=== PATIENT | male | born 1965 | race Caucasian/White ===

== ENCOUNTER 2018-07-28 06:40 | Day surgery (SDC) | payer BC ==
[2018-07-28] VITALS (16 sets, daily range): BP systolic 110–130; BP diastolic 61–81; PULSE 85–110; RESP 15–25; Ht 167.6 cm; Wt 63.6 kg
[~2018-07-28] VITALS: Ht 167.6 cm; Wt 63.6 kg
[~2018-07-28 06:40] MED LIST: CEFAZOLIN 2 GM/50 ML (PMX) 50 ML IVPB SCH; SOD CHLORIDE 0.9% 1,000 ML IV SCH
[2018-07-28] MEDS ORDERED: DEXAMETHASONE 4 MG/ML 5 ML INJ ONE (07:00)
[2018-07-28] MEDS ORDERED: SOD CHLORIDE 0.9% 1,000 ML IV ONE (07:00)
[2018-07-28] MEDS ORDERED: EPHEDrine SULFATE 50 MG/5 ML SYG ONE (07:00)
[2018-07-28] MEDS ORDERED: CEFAZOLIN 2 GM/50 ML (PMX) 50 ML IVPB ONE (07:00)
[2018-07-28] MEDS ORDERED: DESFLURANE 15 MIN ONE (07:00)
[2018-07-28] MEDS ORDERED: ACETAMINOPHEN 500 MG TAB PO STA (07:32)
[2018-07-28] MEDS ORDERED: LIDOCAINE 2% (SDV) 5 ML INJ ONE (08:04)
[2018-07-28] MEDS ORDERED: PROPOFOL 40 ML ONE (08:04)
[2018-07-28] MEDS ORDERED: FENTAnyl 50 MCG/ML VIAL ONE (08:04)
[2018-07-28] MEDS ORDERED: FAMOTIDINE 20 MG INJ ONE (08:04)
[2018-07-28] MEDS ORDERED: ONDANSETRON 4 MG INJ ONE (08:04)
[2018-07-28] MEDS ORDERED: MIDAZOLAM 1 MG/ML 2 ML INJ ONE (08:04)
[2018-07-28] MEDS ORDERED: ROCURONIUM 50 MG INJ ONE (08:04)
[2018-07-28] MEDS ORDERED: CEFAZOLIN 1 GM INJ ONE (08:04)
[2018-07-28] MEDS ORDERED: BUPIVACAINE 0.5%/EPI (SDV) 30 ML INJ ONE (08:22)
--- NOTE | 2018-07-28 08:29 | HPN ---
Date/Time of Note Date/Time of Note DATE: 07/28/18 TIME: 08:29 Interval H&P Admission Note Pt. seen H&P reviewed: No system changes DEVIN PHILIPPE MD Jul 28, 2018 08:29
--- NOTE | 2018-07-28 08:34 | PREAC ---
Date/Time of Note Date/Time of Note DATE: 07/28/18 TIME: 08:32 Anesthesia Eval and Record Evaluation Time Pre-Procedure Interview DATE: 07/28/18 TIME: 08:32 Age 53 Sex male NPO: 8 hrs Preoperative diagnosis R inguinal hernia Planned procedure R inguinal hernia open repair w/ mesh Past Medical History Past Medical History: Includes Pulm: Smoking Hx (x20 yrs ) Surgery & Anesthesia Issues No known issue (L hernia repair) Meds Anticoagulation: No Beta Delores within 24 hr: No Reason Beta Delores not given: Pt. not on B-Delores No Active Prescriptions or Reported Meds Current Medications Sodium Chloride 1,000 ml @ 75 mls/hr [id number] ONCE IV ; Start 07/28/18 at 07:00; Stop 07/28/18 at 20:19 Meds reviewed: Yes Allergies Coded Allergies: No Known Allergies (Verified Allergy, Unknown, 07/28/18) Allergies Reviewed: Yes Labs/Studies Labs Reviewed: Reviewed by anesthesiologist test: N/A Studies: ECG (nsr), CXR (no active dz) Pre-procedure Exam Last vitals Vital Signs Date Temp Pulse Resp B/P (MAP) Pulse Ox O2 O2 Flow FiO2 Time Delivery Rate 07/28/18 98.2 85 18 130/81 96 Room Air 07:49 (97) Airway: Adequate mouth opening, Adequate thyromental dist Mallampati: Mallampati II Teeth: Abnormal (multiple missing teeth, teeth in poor condition) Lung: Normal Heart: Normal ASA Physical Status ASA physical status: 2 Emergency: None Planned Anesthetic General/MAC: ETT Pre-operative Attestations Prior to commencing anesthesia and surgery, the patient was re-evaluated, there was verification of: *The patient's identity *The results of appropriate recent lab work and preoperative vital signs *The above evaluation not changing prior to induction *Anesthetic plan, risk benefits, alternative and complications discussed with patient/family; questions answered; patient/family understands, accepts and wishes to proceed. SUE PARR Jul 28, 2018 08:34
[2018-07-28] MEDS ORDERED: SUGAMMADEX SODIUM 200 MG/2 ML VIAL IV ONE (08:42)
[2018-07-28] MEDS ORDERED: HYDROmorphONE 1 MG/5 ML IV SYRINGE IV PRN ×2 (09:00)
[2018-07-28] MEDS ORDERED: OXYCODONE/ACETAMINOPHEN (5/325) TAB PO PRN ×4 (09:00→10:30)
[2018-07-28] MEDS ORDERED: DIPHENHYDRAMINE 50 MG INJ IV PRN (09:00)
[2018-07-28] MEDS ORDERED: FENTAnyl 50 MCG/ML VIAL IV PRN (09:00)
[2018-07-28] MEDS ORDERED: MEPERIDINE 25 MG INJ IV PRN (09:00)
[2018-07-28] MEDS ORDERED: ONDANSETRON 4 MG INJ IV PRN ×2 (09:00→10:30)
[2018-07-28] MEDS ORDERED: BUPIVACAINE 0.5%/EPI (SDV) 30 ML INJ INJ ONE (09:00)
[2018-07-28] MEDS ORDERED: morphine (1 MG/ML) 10ML SYRINGE IV PRN ×2 (09:00)
[2018-07-28] MEDS ORDERED: POLYMYXIN/BACITRACIN 1L IRRIG IRR ONE (09:00)
[2018-07-28] MEDS ORDERED: LABETALOL HCL 20MG INJ IV PRN (09:00)
[2018-07-28] MEDS ORDERED: ALBUTEROL 0.083% (NEB) 2.5 MG/3 ML AMP HHN PRN (09:00)
[2018-07-28] MEDS ORDERED: ROPIVACAINE 0.2% 20 ML VIAL ONE (10:07)
--- NOTE | 2018-07-28 10:20 | OPR ---
Date/Time of Note Date/Time of Note DATE: 07/28/18 TIME: 10:16 Operative Report Procedure Date: Jul 28, 2018 Preoperative Diagnosis Right inguinal hernia without obstruction or gangrene Postoperative Diagnosis Right inguinal hernia without obstruction or gangrene Operation/Procedure Performed 1. Open repair of right inguinal hernia with mesh 2. Right ilioinguinal nerve block Surgeon see signature line Manager Of Regulatory Affairs None Anesthesia Type: general Anesthesiologist: NOREEN MARTIN MD Estimated Blood Loss: minimal Transfusion none Specimen None Grafts/Implants Ethicon ultra pro plug and patch size medium Complications none Pt Condition Post Procedure: stable Disposition: PACU Indications The patient is a 53-year-old [place] male who presented to the office complaining of a painful right groin bulge. He was diagnosed on clinical exam as having a right inguinal hernia. The patient was scheduled for open right inguinal hernia repair with mesh to prevent sequelae of hernia disease which include, but are not limited to: Incarceration and strangulation. All risks and benefits of the procedure including but not limited to: Wound infection, excessive bleeding, postoperative seroma/hematoma formation, nerve injury which may be temporary versus permanent, injury to the reproductive organs including the vas deferens and the testicle which may lead to testicular atrophy, injury to intra-abdominal organs necessitating subsequent operation, hernia recurrence, chronic pain, etc. were all explained to the patient full detail. The patient fully understood and wished to proceed with the procedure. Informed consent was therefore obtained. Procedure Description The patient was brought to the operating room and placed supine on the operating table. Bilateral sequential compression devices were placed on both lower extremities. A dose of broad-spectrum perioperative intravenous antibiotics was given. After the induction of smooth general anesthesia the patient's abdomen and bilateral groins were prepped and draped in standard surgical fashion. After performance of the surgical timeout 0.5% Marcaine with epinephrine was injected over the area of the incision. Incision was then made using a 15 blade scalpel from the right pubic tubercle towards the right anterior superior iliac spine. Incision was carried down through the skin into the subcutaneous tissues using Bovie electrocautery. Vinnie's fascia was incised and the aponeurosis of the external oblique muscle was reached. The aponeurosis of the external oblique muscle was then incised in the direction of its fibers using a 15 blade scalpel and further opened using Metzenbaum scissors. The ilioinguinal nerve was identified on top of the spermatic cord. It was kept in its anatomical position and preserved throughout the entirety of the procedure. Using blunt dissection the spermatic cord was then mobilized off of the floor of the inguinal canal and encircled using a Bebeto drain. The cord structures were identified and preserved throughout the entirety of the procedure. Cremasteric muscles were incised and dissection of the cord was begun. A moderate sized indirect hernia sac was identified. It was dissected off of the cord. Dissection was continued towards the neck of the hernia. The sac was then reduced back into the intra-abdominal cavity. The indirect hernia defect was then repaired using a medium sized Ethicon ultra pro plug. The plug was sutured in place using interrupted 3-0 Vicryl sutures. An onlay mesh was then used to reconstruct the floor of the inguinal canal. It was secured in place using interrupted 2-0 Novafil sutures. Both the plug and the mesh were soaked in antibiotic irrigation prior to placement in the field. A slit was made in the mesh to accommodate the spermatic cord. With the repair complete it was examined and noted to be hemostatic and tension-free. Adequacy of the repair was confirmed Via Valsalva maneuver performed by the anesthesiologist. The wound cavity was then irrigated with more antibiotic containing irrigation. Spermatic cord was then placed back into its anatomical position. The aponeurosis of the external oblique muscle was then reapproximated using a running 3-0 Vicryl suture. Incision was then closed in layers using a running 3-0 Vicryl suture for the Vinnie's fascia. The skin was then reapproximated using 4-0 Monocryl suture in a running subcuticular fashion. Attention was then turned to the right ilioinguinal nerve block. 10 cc of 0.5% Marcaine with epinephrine was then injected in a radial fashion approximately 2 fingerbreadths medial and inferior to the right anterior superior iliac spine. Further local anesthesia was then injected around the incision site. Incision was cleaned and Dermabond was applied. A tap block was performed by the anesthesiologist and will be documented by her separately. The patient was awoken from anesthesia and transferred to the recovery room in stable condition. Both testicles were palpated and noted to be in their anatomical positions at the end of the case. All counts were correct at the end of the case 2. DEVIN PHILIPPE MD 7, 2019 10:20
[2018-07-28] MEDS ORDERED: KETOROLAC 30 MG INJ ONE (10:21)
--- NOTE | 2018-07-28 10:27 | NUR ---
NURSING RR RECEIVED PT FROM OR NOT IN ANY DISTRESS PT HAS INCISION TO R GROIN OPEN TO AIR CLEAN AND DRY .IV TO LEFT HAND G20 NEEDLE WITH LR INFUSING WELL .
[2018-07-28] MEDS ORDERED: morphine 2 MG INJ IV PRN (10:30)
[2018-07-28] MEDS ORDERED: IBUPROFEN 600 MG TAB PO PRN (10:30)
[2018-07-28] MEDS ORDERED: KETOROLAC 30 MG INJ IV PRN (10:30)
[2018-07-28] MEDS: FENTAnyl 50 MCG/ML VIAL IV PRN ×2 (10:49→10:56)
--- NOTE | 2018-07-28 11:15 | PAC ---
Date/Time of Note Date/Time of Note DATE: 07/28/18 TIME: 11:14 Post-Anesthesia Notes Post-Anesthesia Note Last documented vital signs Vital Signs Date Temp Pulse Resp B/P (MAP) Pulse Ox O2 O2 Flow FiO2 Time Delivery Rate 07/28/18 97.8 102 15 122/69 99 Room Air 11:00 (86) 07/28/18 97.8 10:29 Activity: WNL Respiratory function: WNL Cardiovascular function: WNL Mental status: Baseline Pain reasonably controlled: Yes Hydration appropriate: Yes Nausea/Vomiting absent: No NOREEN MARTIN MD Jul 28, 2018 11:15
--- NOTE | 2018-07-28 11:31 | NUR ---
TRANSFER PT TRANSFER TO [facility] IN STABLE CONDITION CARE PROVIDED PER [facility].
[2018-07-28] MEDS ORDERED: HYDROmorphONE 0.2 MG/ML PCA ONE (11:56)
== END 2018-07-28 12:08 | disposition home or self-care (01) ==
LOC: SDS 06:40
PROVIDERS: ATTEND Surgery
DX: K40.90 Unilateral inguinal hernia, without obstruction or gangrene, not specified as recurrent (principal)
CPT/HCPCS: 49505; C1781; J0690; J1885; J2250; J2405; J2795; J3010; Z7512; Z7610; J1100; J1170